=== PATIENT | male | born 1945 | race Caucasian/White ===

== ENCOUNTER 2020-06-09 18:00 | Emergency (ER) | payer OTHER, SELFPAY ==
[2020-06-09 18:04] VITALS: BP 192/91; PULSE 114; RESP 20; TEMP 35.9; O2SAT 99
[2020-06-09 18:17] LABS: Basophils Absolute Auto 0.1 K/mm3 (0.0-0.1); Basophils Percent Auto 0.5 % (0.2-1.2); Eosinophils Absolute Auto 0.3 K/mm3 (0-0.3); Eosinophils Percent Auto 2.8 % (0-4.4); Hemoglobin 16.6 g/dL (14.0-18.0); Immature Granulocyte Absolute 0.02 K/mm3 (0.00-0.031); Immature Granulocyte Percent A 0.2 % (0-0.5); Lymphocytes Absolute Auto 3.01 K/mm3 (0.9-3.2); Lymphocytes Percent Auto 25.1 % (18.3-44.2); Mean Corpuscular HGB Conc 33.9 g/dl (32-36); Mean Corpuscular Hemoglobin 30.6 pg (26-34); Mean Corpuscular Volume 90.2 fl (80-100); Mean Platelet Volume 10.7 fl (7.4-10.4); Monocytes Absolute Auto 0.8 K/mm3 (0.1-0.6); Monocytes Percent Auto 6.6 % (2.6-8.5); Neutrophils Absolute Auto 7.8 K/mm3 (1.3-6.7); Neutrophils Percent Auto 64.8 % (45.5-73.1); Platelet Count Result 270 k/mm3 (150-375); Red Blood Count 5.43 M/mm3 (4.6-6.20); Red Cell Distribution Width 13.8 % (11.5-14.5)
[2020-06-09 18:29] LABS: Anion Gap 5 mmol/L (8-16); Blood Urea Nitrogen 17 mg/dL (9-20); Calcium 9.5 mg/dL (8.4-10.2); Carbon Dioxide 30 mmol/L (22-30); Chloride 102 mmol/L (98-107); Estimated CRCL calculation 45 ml/min; Estimated Glomerular Filt Rate 59; Glucose 137 mg/dL (75-110); Sodium 137 mmol/L (137-145)
[2020-06-09 19:39] VITALS: BP 168/96; PULSE 92; PULSE 93; RESP 22; O2SAT 98
[2020-06-09 19:53] LABS: Add Urine Microscopic? YES; Appearance Urine Clear (Clear); Bilirubin Urine Negative (Negative); Blood Urine Negative (Negative); Color Urine Straw (Yellow); Glucose Urine UA Negative (Negative); Ketones Urine Negative (Negative); Leukocyte Esterase Ur Negative LEU/UL (Negative); Mucus Urine Rare /lpf; Nitrate Urine Negative (Negative); Protein Urine Negative (Negative); RBC Urine 0-2 /hpf (0-2); Specific Grav Ur 1.016 (1.001-1.035)
--- NOTE | 2020-06-09 20:46 | ED.GENADULT ---
HPI - General Adult General Chief complaint: Unspecified Stated complaint: AMS Time Seen by Provider: 06/09/20 19:57 Source: patient Mode of arrival: ambulatory Limitations: no limitations History of Present Illness HPI narrative: A 74-year-old man complains of not feeling right when he comes to the emergency department. Patient states that he has had several episodes of just feeling unwell over the last couple of days. He states that he gets very lightheaded, feels off. He denies any specific numbness, tingling or lightheadedness. Patient states that usually if he steps outside into the cold air his symptoms subside. He denies any chest pain or shortness of breath with this as well. Related Data Allergies Allergy/AdvReac Type Severity Reaction Status Date / Time Aminoglycosides Allergy Mild Unknown Verified 06/09/20 19:35 neomycin Allergy Mild Unknown Verified 06/09/20 19:35 bacitracin Allergy Unknown Unknown Verified 06/09/20 19:35 polymyxin B Allergy Unknown Unknown Verified 06/09/20 19:35 POLYMYXINBSULF Allergy Mild Unknown Uncoded 06/09/20 19:35 Review of Systems Review of Systems: Narrative: CONSTITUTIONAL: Denies fever, chills, or sweats. EYES: Denies visual changes, redness, or discharge. ENT: Denies rhinorrhea, congestion, sore throat, or otalgia. CARDIOVASCULAR: Denies chest pain, palpitations, or edema. RESPIRATORY: Denies cough or dyspnea. GASTROINTESTINAL: Denies abdominal pain, nausea, vomiting, or diarrhea. GENITOURINARY: Denies dysuria or hematuria. SKIN: Denies rash or itching. MUSCULOSKELETAL: Denies back pain, joint pain, or myalgia. NEUROLOGIC: Denies headache, numbness, dizziness, or weakness. PSYCHIATRIC: Denies anxiety or depression. [facility] Family History Family History Sibling Family history of malignant neoplasm Family history of malignant neoplasm of breast in first degree relative Mother Family history of malignant neoplasm of breast in first degree relative Social History Social History Smoking status: Heavy tobacco smoker Smoking end date: 05/29/12 Alcohol intake: never Exam Narrative: Exam Narrative: GENERAL: Well-appearing, well-nourished, and in no acute distress. HEAD: Normocephalic, atraumatic. EYES: PERRLA and EOMI. ENT: Nares clear, no rhinorrhea or epistaxis. Mucous membranes moist. Oropharynx without tonsillar hypertrophy exudate or other lesions. Bilateral TMs pearly zhu nonbulging NECK: Supple. No adenopathy or masses. No carotid bruits or JVD CHEST: Clear to auscultation. No respiratory distress. No wheezes rales or rhonchi HEART: Regular rate and rhythm. No murmur heard. Normal peripheral pulses. ABDOMEN: Soft, nontender, nondistended, normal active bowel sounds. EXTREMITIES: Normal range of motion. No edema. SKIN: Warm, dry, no rash. NEURO: No focal deficits. Alert and oriented x3. PSYCH: Normal mood and affect. Course Reevaluation(s) Reevaluation #1: Patient was resting comfortably in the room, even had dozed off. When I woke him he stated that he was feeling well. After review of the patient's work-up and his time here I feel that his episodes may be related to hypertension. I did strongly suggest he follow-up with a primary care physician to see if he needs to be on antihypertensives. Patient verbalizes understanding and is ready to go home. Time: 21:36 Vital Signs Vital signs: Vital Signs Temperature 35.9 C L 06/09/20 18:04 Pulse Rate 114 H 06/09/20 18:04 Respiratory Rate 20 06/09/20 18:04 Blood Pressure 192/91 H 06/09/20 18:04 Pulse Oximetry 99 06/09/20 18:04 Temperature 35.9 C L 06/09/20 18:04 Pulse Rate 93 06/09/20 19:39 Respiratory Rate 22 H 06/09/20 19:39 Blood Pressure 168/96 H 06/09/20 19:39 Pulse Oximetry 98 06/09/20 19:39 Medical Decision Making MDM Narrative Medical decision making narrative: In brief t
[2020-06-09] MEDS: LACTATED RINGERS 1,000 ML 999 ML IV CONT (21:08)
[2020-06-09 21:43] VITALS: BP 165/91; PULSE 79; RESP 15; O2SAT 97
[2020-06-09 21:49] VITALS: PULSE 71; RESP 17; O2SAT 97
== END 2020-06-09 21:50 | disposition home or self-care (01) ==
PROVIDERS: Emergency Medicine; Emergency Provider Emergency Medicine; PCP Family Medicine
DX: R55 Syncope and collapse (principal); I10 Essential (primary) hypertension; Z87.891 Personal history of nicotine dependence
CPT/HCPCS: 36415; 80048; 81001; 83735; 85025; 96360; 99283; J7120

== ENCOUNTER 2021-05-10 14:06 | Outpatient (CLI) | payer OTHER, SELFPAY ==
[2021-05-10 14:58] LABS: Hemoglobin A1C 5.7 % (<5.7)
== END 2021-05-10 14:07 | disposition home or self-care (01) ==
PROVIDERS: PCP Family Medicine; Visit Provider Nurse Practitioner Family
DX: R35.1 Nocturia (principal); R73.01 Impaired fasting glucose; E78.2 Mixed hyperlipidemia; I10 Essential (primary) hypertension
CPT/HCPCS: 36415; 83036

== ENCOUNTER 2021-06-16 00:51 | Emergency (ER) | payer OTHER, SELFPAY ==
--- NOTE | ~2021-06-16 | XR_ITS ---
XR chest 1V portable DATE: 06/16/2021 02:50 INDICATION: Shortness of breath. Covid-positive. History of COPD. TECHNIQUE: Portable AP chest on 06/16/2021 at 0246 hours COMPARISON: July 21, 2014 2 view chest FINDINGS: Normal heart size. No hilar or mediastinal enlargement. There are scattered mild patchy areas of infiltrate and/atelectasis in both lungs. Bilateral Covid pn eumonia is not excluded. No pleural effusion or pulmonary vascular congestion or pneumothorax. IMPRESSION: Scattered bilateral mild patchy infiltrate and/atelectasis; Covid pneumonia is not exclud ed. Dr. Hendricks telephoned the report on 06/16/2021 at [address] hours to ER physician Dr. Story. Reviewed, dictated and finalized at location A. ER PLANNER IMPRESSION: Scattered bilateral mild patchy infiltrate and/atelectasis; Covid p neumonia is not excluded. Dr. Hendricks telephoned the report on 06/16/2021 at [address] ER physician [address] Mary Anne silverio.
[2021-06-16 01:04] VITALS: BP 158/87; PULSE 107; RESP 18; TEMP 36.2; O2SAT 95
[2021-06-16 02:29] VITALS: BP 132/91; PULSE 85; RESP 18; O2SAT 95
--- NOTE | 2021-06-16 02:41 | ECG_ITS ---
Measurements Intervals [place] Rate: 83 P: 58 [place]: 148 QRS: 12 QRSD: 108 T: 44 QT: 368 QTc: 435 Interpretive Statements SINUS RHYTHM BASELINE ARTIFACT- I, II, III, AVR, AVL, AVF, V2-V6 NORMAL ECG Electronically Signed On 06-16-2021 6:45:18 SECURITY GUARD by Tristan Galindo D.O.
[2021-06-16 03:10] LABS: Basophils Percent Auto 0.1 % (0.2-1.2); Eosinophils Absolute Auto 0.1 K/mm3 (0-0.3); Eosinophils Percent Auto 0.4 % (0-4.4); Hematocrit 46.6 % (42.0-52.0); Hemoglobin 15.3 g/dL (14.0-18.0); Immature Granulocyte Absolute 0.07 K/mm3 (0.00-0.031); Immature Granulocyte Percent A 0.5 % (0-0.5); Lymphocytes Absolute Auto 0.88 K/mm3 (0.9-3.2); Lymphocytes Percent Auto 5.7 % (18.3-44.2); Mean Corpuscular HGB Conc 32.8 g/dl (32-36); Mean Corpuscular Hemoglobin 29.8 pg (26-34); Mean Corpuscular Volume 90.7 fl (80-100); Mean Platelet Volume 10.1 fl (7.4-10.4); Monocytes Absolute Auto 1.3 K/mm3 (0.1-0.6); Monocytes Percent Auto 8.3 % (2.6-8.5); Neutrophils Absolute Auto 13.2 K/mm3 (1.3-6.7); Platelet Count Result 281 k/mm3 (150-375); Red Blood Count 5.14 M/mm3 (4.6-6.20); White Blood Count 15.5 K/mm3 (4.5-10.0)
[2021-06-16 03:24] LABS: Anion Gap 9 mmol/L (8-16); Blood Urea Nitrogen 21 mg/dL (9-20); Calcium 8.9 mg/dL (8.4-10.2); Carbon Dioxide 30 mmol/L (22-30); Chloride 97 mmol/L (98-107); Estimated CRCL calculation 58 ml/min; Estimated Glomerular Filt Rate > 60; Glucose 136 mg/dL (65-110); Potassium 3.7 mmol/L (3.4-5.0); Sodium 136 mmol/L (137-145)
[2021-06-16 03:40] VITALS: BP 135/82; PULSE 85; RESP 23; O2SAT 96
[2021-06-16] MEDS: SODIUM CHLORIDE 0.9% IV 1,000 ML 999 ML IV CONT (03:40)
--- NOTE | 2021-06-16 04:34 | ED.SOB ---
HPI - SOB/Dyspnea General Chief Complaint: Shortness of Breath/Dyspnea Stated Complaint: covid +, worsening sob Time Seen by Provider: 06/16/21 02:27 History of Present Illness HPI Narrative: Patient is a 75-year-old male who presents ER with shortness of breath. Recently diagnosed with COVID. Has been taking prednisone. Has had persistent cough. Fevers and chills abated. Had increased dyspnea with exertion over the last day and daughter recommend he come in to be checked for pneumonia. No chest pain or chest pressure. No loss of consciousness. Still has metallic taste anytime he eats something. Related Data Allergies Allergy/AdvReac Type Severity Reaction Status Date / Time Aminoglycosides Allergy Mild Unknown Verified 04/28/21 09:03 neomycin Allergy Mild Unknown Verified 04/28/21 09:03 bacitracin Allergy Unknown Unknown Verified 04/28/21 09:03 polymyxin B Allergy Unknown Unknown Verified 04/28/21 09:03 doxycycline AdvReac Intermediate Rash Verified 04/28/21 09:03 POLYMYXINBSULF Allergy Mild Unknown Uncoded 04/28/21 09:03 Review of Systems Review of Systems: All systems reviewed & are unremarkable except as noted in HPI and below Constitutional: Constitutional: Denies chills, Reports fatigue and Denies fever(s) ENT: Denies nasal congestion and Denies sore throat Cardiovascular: Cardiovascular: Denies chest pain, Denies rapid heart rate and Denies radiating jaw, neck or arm pain Respiratory: Respiratory: Denies chest congestion, Reports cough, Reports dyspnea and Denies wheezing Gastrointestinal: Gastrointestinal: Denies abdominal pain, Denies diarrhea, Denies nausea and Denies vomiting Neurologic: Denies dizziness, Denies focal weakness and Denies numbness PMFSH Past Medical History Medical History (Updated 06/16/21 @ 04:40 by John Story MD) Chronic obstructive pulmonary disease, unspecified Hyperlipemia Hypertension Surgical History Surgical History (Updated 06/16/21 @ 04:38 by John Story MD) H/O hand surgery Amputated finger reattachment right hand Family History Family History Sibling Family history of malignant neoplasm Family history of malignant neoplasm of breast in first degree relative Mother Family history of malignant neoplasm of breast in first degree relative Social History Social History Smoking packs per day: 1 Smoking cigarettes per day: 20.0 Years smoked: 60 Smoking pack-years: 60.00 Smoking status: Current every day smoker Tobacco type: cigarettes Second hand tobacco smoke exposure: Yes Smoking end date: 05/29/12 Alcohol intake: never Substance use: never Substance use type: does not use Gender identity (if verbalized by the patient): Male Exam Narrative: GENERAL: Well-appearing, well-nourished, and in no acute distress. HEAD: Normocephalic, atraumatic. CHEST: Clear to auscultation. No respiratory distress. HEART: Regular rate and rhythm. Normal peripheral pulses. ABDOMEN: Soft, nontender, nondistended. EXTREMITIES: Normal range of motion. No edema. SKIN: Warm, dry, no rash. NEURO: Alert and oriented x3. PSYCH: Normal mood and affect. Course Course Emergency Course: No hypoxia, normal lung sounds, no distress. White count elevated due to prednisone. Patient not felt to have bacterial pneumonia or need for antibiotics. Discharge home. Vital Signs Vital signs: Vital Signs Temperature 97.1 F L 06/16/21 01:04 Pulse Rate 107 H 06/16/21 01:04 Respiratory Rate 18 06/16/21 01:04 Blood Pressure 158/87 H 06/16/21 01:04 Pulse Oximetry 95 06/16/21 01:04 Temperature 97.1 F L 06/16/21 01:04 Pulse Rate 85 06/16/21 03:40 Respiratory Rate 23 H 06/16/21 03:40 Blood Pressure 135/82 06/16/21 03:40 Pulse Oximetry 96 06/16/21 03:40 MDM - SOB/Dyspnea Lab Data Result diagrams: 06/16/21 03:05
[2021-06-16 05:02] VITALS: BP 162/70; PULSE 90; RESP 22; O2SAT 97
== END 2021-06-16 05:03 | disposition home or self-care (01) ==
PROVIDERS: Emergency Provider Emergency Medicine; PCP Family Medicine
DX: U07.1 COVID-19 (principal); J12.82 Pneumonia due to coronavirus disease 2019; J44.9 Chronic obstructive pulmonary disease, unspecified; E78.5 Hyperlipidemia, unspecified; I10 Essential (primary) hypertension; F17.210 Nicotine dependence, cigarettes, uncomplicated
CPT/HCPCS: 36415; 71045; 80048; 85025; 93005; 96360; 96361; 99283; J7030

== ENCOUNTER 2023-05-06 20:45 | Emergency (ER) | payer OTHER, SELFPAY ==
--- NOTE | ~2023-05-06 | XR_ITS ---
EXAMINATION: XR chest 1V portable INDICATION: Lightheadedness TECHNIQUE: Portable AP chest at 0205 hours COMPARISON: 06/16/2021 FINDINGS: The lungs are free of acute opacities. No pleural effusion or pneumothorax. The cardiomedia stinal silhouette is normal. IMPRESSION: 1. No acute cardiopulmonary abnormality. Reviewed, dictated and finalized at location F. OR DATABASE ENGINEER
[2023-05-06 20:47] VITALS: BP 157/91; PULSE 96; RESP 18; TEMP 36.6; O2SAT 99
[2023-05-06 21:19] LABS: Appearance Urine Clear (Clear); Bilirubin Urine Negative (Negative); Blood Urine Negative (Negative); Color Urine Yellow (Yellow); Glucose Urine UA Negative (Negative); Ketones Urine Negative (Negative); Leukocyte Esterase Ur Negative LEU/UL (Negative); Nitrate Urine Negative (Negative); Protein Urine Negative (Negative); Specific Grav Ur 1.016 (1.001-1.035)
[2023-05-06 21:33] LABS: Add Urine Microscopic? NO
[2023-05-06 23:38] VITALS: BP 124/72; PULSE 72; RESP 17; O2SAT 96
[2023-05-06 23:41] VITALS: PULSE 71; RESP 21; O2SAT 94
[2023-05-06 23:45] VITALS: PULSE 64; RESP 16; O2SAT 94
[2023-05-06 23:46] VITALS: BP 124/71; PULSE 68; RESP 17; O2SAT 95
[2023-05-07] VITALS (27 sets, daily range): BP systolic 127–144; BP diastolic 72–90; PULSE 63–86; RESP 12–24; O2SAT 93–98
--- NOTE | 2023-05-07 01:29 | ECG_ITS ---
Measurements Intervals [place] Rate: 74 P: 64 [place]: 142 QRS: 26 QRSD: 113 T: 57 QT: 377 QTc: 420 Interpretive Statements SINUS RHYTHM INTRAVENTRICULAR CONDUCTION DELAY Electronically Signed On 05-07-2023 10:30:16 BRAND MARKETING COORDINATOR by Quang Bae M.D.
[2023-05-07] MEDS: SODIUM CHLORIDE 0.9% IV 1,000 ML 999 ML IV CONT (01:44)
[2023-05-07 01:51] LABS: Glucose Point of Care 114 mg/dl (65-105)
[2023-05-07 01:59] LABS: Basophils Absolute Auto 0.1 K/mm3 (0.0-0.1); Basophils Percent Auto 0.5 % (0.2-1.2); Eosinophils Absolute Auto 0.3 K/mm3 (0-0.3); Eosinophils Percent Auto 2.9 % (0-4.4); Hematocrit 46.3 % (42.0-52.0); Hemoglobin 15.1 g/dL (14.0-18.0); Immature Granulocyte Absolute 0.03 K/mm3 (0.00-0.031); Immature Granulocyte Percent A 0.3 % (0-0.5); Lymphocytes Absolute Auto 2.79 K/mm3 (0.9-3.2); Lymphocytes Percent Auto 23.4 % (18.3-44.2); Mean Corpuscular HGB Conc 32.6 g/dl (32-36); Mean Corpuscular Hemoglobin 29.8 pg (26-34); Mean Corpuscular Volume 91.5 fl (80-100); Mean Platelet Volume 10.7 fl (7.4-10.4); Monocytes Absolute Auto 0.8 K/mm3 (0.1-0.6); Monocytes Percent Auto 6.5 % (2.6-8.5); Neutrophils Absolute Auto 7.9 K/mm3 (1.3-6.7); Neutrophils Percent Auto 66.4 % (45.5-73.1); Platelet Count Result 233 k/mm3 (150-375); Red Blood Count 5.06 M/mm3 (4.6-6.20); Red Cell Distribution Width 13.7 % (11.5-14.5); White Blood Count 11.9 K/mm3 (4.5-10.0)
[2023-05-07 02:13] LABS: Alanine Aminotransferase 20 U/L (6-50); Albumin Level 4.2 g/dL (3.5-5.1); Alkaline Phosphatase 83 U/L (38-126); Anion Gap 7 mmol/L (8-16); Aspartate Amino Transferase 22 U/L (17-59); Bilirubin,Total 0.7 mg/dL (0.2-1.3); Blood Urea Nitrogen 19 mg/dL (9-20); Calcium 9.2 mg/dL (8.4-10.2); Carbon Dioxide 28 mmol/L (22-30); Chloride 103 mmol/L (98-107); Estimated CRCL calculation 56 ml/min; Estimated Glomerular Filt Rate > 60; Glucose 101 mg/dL (65-110); Potassium 4.2 mmol/L (3.4-5.0); Sodium 138 mmol/L (137-145)
[2023-05-07 02:36] LABS: Influenza A QL RT-PCR Negative (Negative); Influenza B QL RT-PCR Negative (Negative); RSV RNA, RT-PCR Negative (Negative); SARS-CoV-2 RNA PCR Negative (Negative)
--- NOTE | 2023-05-07 04:38 | ED.GENADULT ---
HPI - General Adult General Chief complaint: Urogenital-Male Stated complaint: lightheaded, bladder problem Time Seen by Provider: 05/06/23 22:50 History of Present Illness HPI narrative: This is a 77-year-old presenting with 2 complaints. First is difficulty urinating. Patient says that he has prostate issues he frequently has trouble urinating. He had been placed on Flomax by his primary care physician. He denies dysuria, urgency, frequency or flank pain. Second complaint is a patient says he feels light headed. He says he has been dealing with this for years. Says the lightheadedness is worse when he stands up. Patient notes that he does not eat very much throughout the day. The daughter was concerned she took his temperature was 96.8?. Related Data Allergies Allergy/AdvReac Type Severity Reaction Status Date / Time Aminoglycosides Allergy Mild Unknown Verified 05/06/23 23:39 neomycin Allergy Mild Unknown Verified 05/06/23 23:39 bacitracin Allergy Unknown Unknown Verified 05/06/23 23:39 polymyxin B Allergy Unknown Unknown Verified 05/06/23 23:39 doxycycline AdvReac Intermediate Rash Verified 05/06/23 23:39 amoxicillin AdvReac gi upset Verified 05/06/23 23:39 POLYMYXINBSULF Allergy Mild Unknown Uncoded 02/07/23 09:34 PMFSH Past Medical History Medical History Chronic obstructive pulmonary disease, unspecified Hyperlipemia Hypertension Surgical History Surgical History H/O hand surgery Amputated finger reattachment right hand Family History Family History Sibling Family history of malignant neoplasm Family history of malignant neoplasm of breast in first degree relative Mother Family history of malignant neoplasm of breast in first degree relative Social History Social History Smoking packs per day: 1 Smoking cigarettes per day: 20.0 Years smoked: 60 Smoking pack-years: 60.00 Smoking status: Current some day smoker Tobacco type: cigarettes Second hand tobacco smoke exposure: Yes Smoking end date: 05/29/12 Alcohol intake: never Substance use: never Substance use type: does not use Living arrangements: with family Occupation/Education: retired Gender identity (if verbalized by the patient): Male Exam Narrative: APPEARANCE: No apparent distress. Head: atraumatic. EYES: EOMI, NOSE: Atraumatic NECK: Trachea midline RESPIRATORY: No increased rate of breathing clear to auscultation CARDIOVASCULAR: RRR, no peripheral edema, patient is able stand without becoming lightheaded ABDOMINAL: Non-distended soft nontender no guarding rebound no CVA tenderness MUSCULOSKELETAl: No obvious deformities NEURO: Alert. Moving 4/4 extremities SKIN:: Warm, dry. Normal color PSYCHIATRIC: Normal affect Course Vital Signs Vital signs: Vital Signs Temperature 97.9 F 05/06/23 20:47 Pulse Rate 96 05/06/23 20:47 Respiratory Rate 18 05/06/23 20:47 Blood Pressure 157/91 H 05/06/23 20:47 Pulse Oximetry 99 05/06/23 20:47 Oxygen Delivery Room Air 05/06/23 20:47 Temperature 97.9 F 05/06/23 20:47 Pulse Rate 69 05/07/23 00:31 Respiratory Rate 19 05/07/23 00:31 Blood Pressure 132/81 05/07/23 00:31 Pulse Oximetry 95 05/07/23 00:31 Oxygen Delivery Room Air 05/06/23 20:47 Medical Decision Making MDM Narrative Medical decision making narrative: -Course: 77-year-old male complaining about intermittent lightheadedness that has been going on for years. Screening lab work was ordered which is all within normal limits. He also urinary complaints but he does not have a UTI. He does have chronic BPH which is likely the cause of his issues. Chest x-ray and viral swabs were also negative. Patient is given some fluid and on re-evaluation hi
== END 2023-05-07 05:46 | disposition home or self-care (01) ==
PROVIDERS: Emergency Provider Emergency Medicine; PCP Family Medicine
DX: R42 Dizziness and giddiness (principal); E78.5 Hyperlipidemia, unspecified; I10 Essential (primary) hypertension; F17.210 Nicotine dependence, cigarettes, uncomplicated; Z20.822 Contact with and (suspected) exposure to COVID-19
CPT/HCPCS: 36415; 71045; 80053; 81003; 82948; 85025; 87637; 93005; 96360; 99284; J7030

== ENCOUNTER 2023-07-07 19:13 | Emergency (ER) | payer OTHER, SELFPAY ==
[2023-07-07] VITALS (13 sets, daily range): BP systolic 115–151; BP diastolic 68–80; PULSE 67–94; RESP 15–24; TEMP 36.5; O2SAT 94–100
--- NOTE | ~2023-07-07 | XR_ITS ---
EXAMINATION: XR chest 2V DATE: 07/07/2023 19:47 INDICATION: Shortness of breath. TECHNIQUE: Frontal and lateral views of the chest were obtained. COMPARISON: Chest single view 05/07/2023 FINDINGS: There is no pneumonia, pleural effusion, or pneumothorax. The heart size is normal. IMPRESSION: 1. No acute cardiopulmonary disease. Reviewed, dictated and finalized at location E. [facility]ES
--- NOTE | 2023-07-07 19:28 | ECG_ITS ---
Measurements Intervals [place] Rate: 89 P: 73 [place]: 143 QRS: -9 QRSD: 121 T: 65 QT: 343 QTc: 419 Interpretive Statements SINUS RHYTHM MODERATE INTRAVENTRICULAR CONDUCTION DELAY [110+ ms QRS DURATION] ABNORMAL ECG COMPARED TO ECG 05/07/2023 01:42:12 NO SIGNIFICANT CHANGES Electronically Signed On 07-08-2023 8:03:22 PAINTER HELPER SIGN by Artie Weeks M.D.
[2023-07-07 20:03] LABS: Basophils Absolute Auto 0.1 K/mm3 (0.0-0.1); Basophils Percent Auto 0.5 % (0.2-1.2); Eosinophils Absolute Auto 0.3 K/mm3 (0-0.3); Eosinophils Percent Auto 2.6 % (0-4.4); Hematocrit 47.7 % (42.0-52.0); Hemoglobin 15.2 g/dL (14.0-18.0); Immature Granulocyte Absolute 0.03 K/mm3 (0.00-0.031); Immature Granulocyte Percent A 0.3 % (0-0.5); Lymphocytes Absolute Auto 2.23 K/mm3 (0.9-3.2); Lymphocytes Percent Auto 20.2 % (18.3-44.2); Mean Corpuscular HGB Conc 31.9 g/dl (32-36); Mean Corpuscular Hemoglobin 29.5 pg (26-34); Mean Corpuscular Volume 92.6 fl (80-100); Mean Platelet Volume 10.7 fl (7.4-10.4); Monocytes Absolute Auto 0.9 K/mm3 (0.1-0.6); Monocytes Percent Auto 7.9 % (2.6-8.5); Neutrophils Absolute Auto 7.6 K/mm3 (1.3-6.7); Neutrophils Percent Auto 68.5 % (45.5-73.1); Platelet Count Result 259 k/mm3 (150-375); Red Blood Count 5.15 M/mm3 (4.6-6.20); Red Cell Distribution Width 13.6 % (11.5-14.5)
[2023-07-07 20:21] LABS: Alanine Aminotransferase 22 U/L (6-50); Albumin Level 4.5 g/dL (3.5-5.1); Alkaline Phosphatase 90 U/L (38-126); Anion Gap 6 mmol/L (8-16); Aspartate Amino Transferase 26 U/L (17-59); Bilirubin,Total 0.7 mg/dL (0.2-1.3); Blood Urea Nitrogen 18 mg/dL (9-20); Calcium 9.4 mg/dL (8.4-10.2); Carbon Dioxide 31 mmol/L (22-30); Chloride 102 mmol/L (98-107); Estimated CRCL calculation 56 ml/min; Estimated Glomerular Filt Rate > 60; Glucose 124 mg/dL (65-110); Sodium 139 mmol/L (137-145)
[2023-07-07] MEDS: IPRATROPIUM 0.5 MG/ALBUTEROL SULFATE 2.5 MG AMPUL.NEB 3 ML INHALATION (23:10)
[2023-07-08] LABS: NT Pro B Type Natriuretic Pept < 20 pg/mL (19.9-100); Troponin I < 0.012 ng/mL (0.000-0.034)
[2023-07-08 00:01] VITALS: BP 114/72; PULSE 86; RESP 14; O2SAT 94
[2023-07-08 00:23] LABS: Influenza A QL RT-PCR Negative (Negative); Influenza B QL RT-PCR Negative (Negative); RSV RNA, RT-PCR Negative (Negative); SARS-CoV-2 RNA PCR Negative (Negative)
[2023-07-08 00:31] VITALS: BP 115/67; PULSE 82; RESP 17; O2SAT 99
[2023-07-08 00:52] LABS: Appearance Urine Clear (Clear); Bacteria Urine None Seen /hpf; Bilirubin Urine Negative (Negative); Blood Urine Negative (Negative); Color Urine Yellow (Yellow); Glucose Urine UA Negative (Negative); Ketones Urine Negative (Negative); Leukocyte Esterase Ur Trace LEU/UL (Negative); Nitrate Urine Negative (Negative); Non Pathogenic Casts 0-2; Protein Urine Negative (Negative); RBC Urine 0-2 /hpf (0-2); Squamous Epithelial Cell Urine None seen /hpf (Few); Urobilinogen Urine 0.2 mg/dL (<2.0); WBC Urine 0-5 /hpf
[2023-07-08 01:01] LABS: Add Urine Microscopic? YES
--- NOTE | 2023-07-08 01:16 | ED.GENADULT ---
HPI - General Adult General Chief complaint: Shortness of Breath/Dyspnea Stated complaint: shortness of breath Time Seen by Provider: 07/07/23 22:50 History of Present Illness HPI narrative: patient is a 77-year-old gentleman who presents emergency department with chief complaint of shortness of breath. Patient reports that he has been having some minor difficulty with urinating but has been able to urinate more patient does report that he has COPD and has been wheezing or coughing more patient denies fever patient denies chest pain. Related Data Allergies Allergy/AdvReac Type Severity Reaction Status Date / Time Aminoglycosides Allergy Mild Unknown Verified 07/07/23 19:14 neomycin Allergy Mild Unknown Verified 07/07/23 19:14 polymyxin B Allergy Unknown Unknown Verified 07/07/23 19:14 doxycycline AdvReac Intermediate Rash Verified 07/07/23 19:14 amoxicillin AdvReac gi upset Verified 07/07/23 19:14 POLYMYXINBSULF Allergy Mild Unknown Uncoded 07/07/23 19:14 Review of Systems Review of Systems: A 10 system review of systems was completed on the patient and is negative except for what is stated in the HPI. Nursing and ancillary documentation was reviewed. [facility] Past Medical History Medical History Chronic obstructive pulmonary disease, unspecified Hyperlipemia Hypertension Surgical History Surgical History H/O hand surgery Amputated finger reattachment right hand Family History Family History Sibling Family history of malignant neoplasm Family history of malignant neoplasm of breast in first degree relative Mother Family history of malignant neoplasm of breast in first degree relative Social History Social History Smoking packs per day: 1 Smoking cigarettes per day: 20.0 Years smoked: 60 Smoking pack-years: 60.00 Smoking status: Current some day smoker Tobacco type: cigarettes Second hand tobacco smoke exposure: Yes Smoking end date: 05/29/12 Alcohol intake: never Substance use: never Substance use type: does not use Living arrangements: with family Occupation/Education: retired Gender identity (if verbalized by the patient): Male Exam Narrative: GENERAL: Well-appearing, well-nourished, and in no acute distress. HEAD: Normocephalic, atraumatic. EYES: PERRLA and EOMI. ENT: Nares clear, no rhinorrhea or epistaxis. Mucous membranes moist. NECK: Supple. CHEST: Scattered wheezes to auscultation. No respiratory distress. HEART: Regular rate and rhythm. No murmur heard. Normal peripheral pulses. ABDOMEN: Soft, nontender, nondistended, normal active bowel sounds. EXTREMITIES: Normal range of motion. No edema. SKIN: Warm, dry, no rash. NEURO: No focal deficits. Alert and oriented x3. PSYCH: Normal mood and affect. Course Vital Signs Vital signs: Vital Signs Temperature 36.5 C 07/07/23 19:21 Pulse Rate 94 07/07/23 19:21 Respiratory Rate 20 07/07/23 19:21 Blood Pressure 145/73 H 07/07/23 19:21 Pulse Oximetry 96 07/07/23 19:21 Oxygen Delivery Room Air 07/07/23 19:21 Temperature 36.5 C 07/07/23 19:21 Pulse Rate 68 07/07/23 23:19 Respiratory Rate 15 07/07/23 23:19 Blood Pressure 126/75 07/07/23 22:52 Pulse Oximetry 96 07/07/23 22:52 Oxygen Delivery Room Air 07/07/23 22:02 Medical Decision Making [facility] Narrative Medical decision making narrative: differential diagnosis includes COPD exacerbation, pneumonia, ACS, urinary tract infection urinary retention laboratory studies were obtained on the patient showed a white count of 11 electrolytes within normal limits troponin was negative BNP was less than 20 urinalysis showed no evidence UTI chest x-ray shows no evidence of pneum
[2023-07-08] MEDS: predniSONE 20 MG TABLET 60 MG PO (01:28)
[2023-07-08 01:29] VITALS: BP 126/71; PULSE 71; PULSE 74; RESP 19; RESP 20; O2SAT 95
== END 2023-07-08 01:33 | disposition home or self-care (01) ==
PROVIDERS: Emergency Provider Emergency Medicine; PCP Family Medicine
DX: J44.1 Chronic obstructive pulmonary disease with (acute) exacerbation (principal); Z20.822 Contact with and (suspected) exposure to COVID-19; E78.5 Hyperlipidemia, unspecified; I10 Essential (primary) hypertension; Z87.891 Personal history of nicotine dependence; I45.9 Conduction disorder, unspecified
CPT/HCPCS: 36415; 71046; 80053; 81001; 83880; 84484; 85025; 87637; 93005; 94640; 99284; J7512